=== PATIENT | female | born 1995 | race Caucasian/White ===

== ENCOUNTER 2024-07-13 10:53 | Emergency (ER) | payer OTHER ==
[2024-07-13 11:27] LABS: BASOPHILS PERCENT AUTO 0.3 % (0.2-1.2); HEMATOCRIT 36.8 % (33.0-47.0); HEMOGLOBIN 12.9 g/dL (12.0-16.0); IMMATURE GRAN ABSOLUTE AUTO 0.01 x10^3/uL (0.00-0.07); LYMPHOCYTES ABSOLUTE AUTO 0.7 x10^3/uL (1.0-4.8); LYMPHOCYTES PERCENT AUTO 9.8 % (25.0-50.0); MEAN CORPUSCULAR HEMOGLOBIN 30.1 pg (26.0-32.0); MEAN CORPUSCULAR HGB CONC 35.1 g/dL (32.0-36.0); MEAN CORPUSCULAR VOLUME 85.8 fL (78.0-93.0); MONOCYTES ABSOLUTE AUTO 0.4 x10^3/uL (0.0-0.8); NEUTROPHILS ABSOLUTE AUTO 5.9 x10^3/uL (1.8-7.7); NEUTROPHILS PERCENT AUTO 84.8 % (50.0-80.0); PLATELET COUNT,PLT 246 x10^3/uL (130-400); RED BLOOD CELL COUNT 4.29 x10^6/uL (4.00-5.50)
[2024-07-13 11:29] LABS: AMPHETAMINE, URINE NEGATIVE (NEGATIVE); BARBITUATES,URINE NEGATIVE (NEGATIVE); BENZODIAZEPINES,URINE NEGATIVE (NEGATIVE); BUPRENORPHINE,URINE NEGATIVE (NEGATIVE); COCAINE,URINE NEGATIVE (NEGATIVE); MARIJUANA,URINE POSITIVE (NEGATIVE); METHADONE,URINE NEGATIVE (NEGATIVE); METHAMPHETAMINE,URINE NEGATIVE (NEGATIVE); METHYLENEDIOXYMETHAMP,UR NEGATIVE (NEGATIVE); OPIATES,URINE NEGATIVE (NEGATIVE); OXYCODONE,URINE NEGATIVE (NEGATIVE); PHENCYCLIDINE,URINE NEGATIVE
[2024-07-13] MEDS: Ondansetron 4 MG Tab.DIS PO ONE (11:43)
[2024-07-13 11:46] LABS: BLOOD UREA NITROGEN,BUN 8 mg/dL (7-18); CALCIUM 9.2 mg/dL (8.5-10.1); CARBON DIOXIDE,CO2 21 mmol/L (21-32); CHLORIDE,CL 108 mmol/L (98-107); GLUCOSE RANDOM 97 mg/dL (70-99); POTASSIUM,K 3.7 mmol/L (3.5-5.1); SODIUM,NA 141 mmol/L (136-145)
[2024-07-13 11:49] LABS: ACETAMINOPHEN 0 ug/ml (10-30); ANION GAP 15.7 mmol/L (5-15); ESTIMATED GFR 78 mL/min (>=60)
== END 2024-07-13 17:15 ==
LOC: VM.ED 10:53
DX: F32.A Depression, unspecified (principal); R45.851 Suicidal ideations; Z88.5 Allergy status to narcotic agent
CPT/HCPCS: 36415; 80048; 80143; 80179; 80305-QW; 80307; 85025; 99284; A9270-GY